=== PATIENT | male | born 1965 | race Caucasian/White ===

== ENCOUNTER 2021-08-31 11:25 | Inpatient (IN) | payer BC ==
[~2021-08-31] VITALS: Ht 172.7 cm; Wt 112.5 kg
--- NOTE | 2021-08-31 11:31 | NUR ---
TO ER BED 11, C/O DIZZINESS [id number] WORSE THIS MORNING AND LT EAR DISCOMFORT, CONNECTED TO MONITOR, DR RODRIGUEZ AT BEDSIDE
[2021-08-31] MEDS ORDERED: MECLIZINE HCL 25 MG TABLET ONE (11:58)
[2021-08-31] MEDS ORDERED: IV NS 0.9% 1,000 ML BAG IV ONE (12:00)
[2021-08-31] MEDS ORDERED: MECLIZINE HCL 12.5 MG TABLET PO ONE (12:00)
[2021-08-31 12:10] LABS: BASOPHILS % (AUTO) 0.3 % (0.0-2.0); EOSINOPHILS % (AUTO) 0.1 % (0.0-6.0); HEMATOCRIT 47 % (39-51); HEMOGLOBIN 15.6 g/dL (13.5-17.5); LYMPHOCYTES # (AUTO) 0.9 K/uL (0.8-4.8); LYMPHOCYTES % (AUTO) 9.5 % (20.0-44.0); MEAN CORPUSCULAR HGB CONC 34 g/dl (31.0-36.0); MEAN CORPUSCULAR VOLUME 96 fL (80-96); MONOCYTES # (AUTO) 0.4 K/uL (0.1-1.30); NEUTROPHILS % (AUTO) 86.1 % (43.0-81.0); PLATELET COUNT (AUTO) 217 K/uL (150-450); RED BLOOD CELL COUNT(AUTO) 4.86 MIL/uL (4.5-6.0); WHITE BLOOD COUNT (AUTO) 9.3 K/uL (4.3-11.0)
[2021-08-31 12:20] LABS: CALCIUM, SERUM 8.9 mg/dL (8.5-10.1); CREATININE 1.1 mg/dL (0.6-1.3); POTASSIUM 3.7 mmol/L (3.5-5.1)
[2021-08-31] MEDS ORDERED: LORAZEPAM INJ 2 MG/ML VIAL IV ONE (13:00)
[2021-08-31] MEDS ORDERED: METOCLOPRAMIDE HCL 10 MG/2 ML VIAL IV ONE (13:00)
[2021-08-31] MEDS ORDERED: LORAZEPAM INJ 2 MG/ML VIAL ONE (13:04)
[2021-08-31] MEDS ORDERED: METOCLOPRAMIDE HCL 10 MG/2 ML VIAL ONE (13:04)
--- NOTE | 2021-08-31 13:12 | NUR ---
MOVE SHEET SUBMITTED AND CALLED FOR BED.
--- NOTE | 2021-08-31 13:14 | NUR ---
[facility] CALLED [employer] [employer] PAGED.
[2021-08-31] MEDS ORDERED: ALLO100T PO (13:30)
[2021-08-31] MEDS ORDERED: COLC0.6C3 PO (13:30)
--- NOTE | 2021-08-31 13:45 | NUR ---
TEXTED DR. BAIRD FOR MRI APPROVAL.
--- NOTE | 2021-08-31 13:54 | NUR ---
MRI APPROVED, SURGEON PARTNER NOTIFIED.
--- NOTE | 2021-08-31 14:48 | NUR ---
COVID SWAB DONE AND SENT TO THE LAB
[2021-08-31] MEDS ORDERED: Z GUARD REMEDY 2 OZ OINT TP PRN (15:00)
[2021-08-31] MEDS ORDERED: MAGNESIUM HYDROXIDE 30 ML UDC PO PRN (15:00)
[2021-08-31] MEDS ORDERED: DIVALPROEX SODIUM 125 MG CAP.SPRINK PO ONE (15:00)
[2021-08-31] MEDS ORDERED: Magnesium 1GM/D5W 100ML PREMIX 100 ML IV SCH (15:00)
[2021-08-31] MEDS ORDERED: ZOLPIDEM TARTRATE 5 MG TABLET PO PRN (15:00)
[2021-08-31] MEDS ORDERED: MAG HYDROX/AL HYDROX/SIMETH 30 ML UDC PO PRN (15:00)
[2021-08-31] MEDS ORDERED: ACETAMINOPHEN 325 MG TABLET PO PRN (15:00)
--- NOTE | 2021-08-31 15:32 | NUR ---
ROOM 304-2
[2021-08-31 16:00] VITALS: BP 182/110
--- NOTE | 2021-08-31 16:35 | NUR ---
REPORT GIVEN TO NURSE SAMANIEGO AND THE PATIENT IS TRANSFERED TO ROOM 304 IN STABLE CONDITION AND VIA ARRANGED TRANSPO.
--- NOTE | 2021-08-31 16:40 | NUR ---
RN NOTE PT IN ROOM IN STABLE CONDITION. ZOFRAN GIVEN IV FOR NAUSEA. SKIN INTACT. NO SOB OR RESPIRATORY DISTRESS. TELE MONITOR PLACED. WILL CONTINUE TO MONITOR.
--- NOTE | 2021-08-31 19:45 | NUR ---
SENIOR HR MANAGER OPENING NOTE PATIENT RESTING IN BED, ALERT/ORIENTED X 4, PT ABLE TO MAKE NEEDS KNOWN. PATIENT STABLE ON RA, NO S/S OF DISTRESS OR SOB NOTED, BREATHING EVEN AND UNLABORED. PATIENT ON EXTERNAL ENGINE HOSTLER READING SINUS RHYTHM, HR: 75. LEFT HAND #22G IV ACCESS INTACT AND FLUSHING WELL. PATIENT REPORTING VERTIGO AND NAUSEA AT THIS TIME. SAFETY MEASURES IN PLACE: CALL LIGHT WITHIN REACH, SIDE RAILS UP X 2, BED LOCKED IN LOW POSITION, BED ALARM ON. WILL CONTINUE TO MONITOR PATIENT
[2021-08-31 20:00] VITALS: BP 178/110
[2021-08-31] MEDS ORDERED: hydrALAZINE HCL 50 MG TABLET PO ONE (20:00)
--- NOTE | 2021-08-31 20:00 | NUR ---
MARINE CONSULTANT NOTE CONTACTED REGARDING PATIENT'S HIGH BP OF 178/110. NEW ORDER FOR HYDRALAZINE 50 MG PO ONCE. ORDER READ BACK AND CONFIRMED, ORDER CARRIED OUT. WILL CONTINUE TO MONITOR PATIENT
[2021-08-31] MEDS: ONDANSETRON HCL/PF 4 MG/2 ML VIAL IVP PRN (20:15)
[2021-09-01] VITALS (7 sets, daily range): BP systolic 146–182; BP diastolic 89–106
--- NOTE | 2021-09-01 | NUR ---
PERSONAL ASSISTANT NOTE CONTACTED , PATIENT STILL HAS HIGH BP OF 182/100. NEW ORDER FOR HYDRALAZINE 50 MG PO ONCE. ORDER READBACK AND CONFIRMED, ORDER CARRIED OUT. WILL CONTINUE TO MONITOR PATIENT
[2021-09-01] MEDS: IV NS 0.9% 1,000 ML IV PRN ×2 (00:04→17:41)
[2021-09-01] MEDS: ONDANSETRON HCL/PF 4 MG/2 ML VIAL IVP PRN (00:05)
[2021-09-01 06:35] LABS: BASOPHILS % (AUTO) 0.4 % (0.0-2.0); EOSINOPHILS % (AUTO) 0.9 % (0.0-6.0); HEMATOCRIT 41 % (39-51); HEMOGLOBIN 14.1 g/dL (13.5-17.5); LYMPHOCYTES # (AUTO) 2.3 K/uL (0.8-4.8); LYMPHOCYTES % (AUTO) 30.4 % (20.0-44.0); MEAN CORPUSCULAR HGB CONC 34 g/dl (31.0-36.0); MEAN CORPUSCULAR VOLUME 95 fL (80-96); MONOCYTES # (AUTO) 0.6 K/uL (0.1-1.30); MONOCYTES % (AUTO) 8.2 % (2.0-12.0); NEUTROPHILS # (AUTO) 4.6 K/uL (1.8-8.9); NEUTROPHILS % (AUTO) 60.1 % (43.0-81.0); PLATELET COUNT (AUTO) 212 K/uL (150-450); RED BLOOD CELL COUNT(AUTO) 4.35 MIL/uL (4.5-6.0); WHITE BLOOD COUNT (AUTO) 7.7 K/uL (4.3-11.0)
--- NOTE | 2021-09-01 06:46 | NUR ---
PROFESSOR OF NURSING CLOSING NOTES PATIENT SLEEPING IN BED, APPEARS COMFORTABLE AND NOT IN DISTRESS. PATIENT'S BP DECREASED, LATEST BP 155/95. LEFT HAND IV ACCESS RUNNING NS @ 75 ML/HR. EXTERNAL HOURLY TEAM MEMBERS READING SINUS RHYTHM, HR: 66. CONSENT FORM AND QUESTIONNAIRE FOR BRAIN MRI WITHOUT CONTRAST SIGNED BY PATIENT AND CHARTED. SAFETY MEASURES IN PLACE: CALL LIGHT WITHIN REACH, SIDE RAILS UP X 2, BED LOCKED IN LOW POSITION, BED ALARM ON. WILL ENDORSE TO DAY SHIFT NURSE FOR CONTINUITY OF CARE
[2021-09-01 06:54] LABS: CALCIUM, SERUM 8.5 mg/dL (8.5-10.1); CREATININE 0.9 mg/dL (0.6-1.3); PHOSPHORUS 3.6 mg/dL (2.5-4.9); POTASSIUM 3.5 mmol/L (3.5-5.1)
--- NOTE | 2021-09-01 07:35 | NUR ---
TELE/RN OPENING NOTES RECEIVED PATIENT AWAKE ALERT AND ORIENTED X 4. PATIENT IS ON ROOM AIR. PATIENT IN NO APPARENT RESPIRATORY DISTRESS NOTED. NO COMPLAINED OF PAIN AT THIS TIME. TELE MONITOR READING SINUS RHYTHM 75 BPM. WILL CONTINUE TO MONITOR.
[2021-09-01] MEDS: ALLOPURINOL 100 MG TABLET PO SCH (08:37)
[2021-09-01] MEDS: COLCHICINE 0.6 MG TABLET PO SCH (08:37)
[2021-09-01] MEDS: VERAPAMIL HCL 80 MG TABLET PO SCH ×2 (08:38→17:29)
--- NOTE | 2021-09-01 09:00 | NUR ---
RN NOTES PATIENT IS OUT IN THE UNIT HAND PROFILER ELECTRONIC COMPONENTS ASSEMBLER FOR MRI.
--- NOTE | 2021-09-01 09:50 | NUR ---
RN NOTES PATIENT CAME BACK, PATIENT IS ALERT AND ORIENTED X4. PATIENT IS STABLE. WILL CONTINUE TO MONITOR.
[2021-09-01] MEDS ORDERED: GADOTERATE MEGLUMINE 10 MMOL/20 ML VIAL IV ONE (10:01)
[2021-09-01] MEDS ORDERED: predniSONE 50 MG TABLET PO SCH (13:00)
[2021-09-01] MEDS: predniSONE 20 MG TABLET PO SCH (13:50)
[2021-09-01] MEDS ORDERED: predniSONE 10 MG TABLET PO SCH (14:00)
--- NOTE | 2021-09-01 18:37 | NUR ---
MS/RN CLOSING NOTES PATIENT IS AWAKE ALERT AND ORIENTED X4. PATIENT IS ON ROOM AIR. PATIENT IN NO APPARENT RESPIRATORY DISTRESS NOTED. NO COMPLAINED OF PAIN NOTED AT THIS TIME. IV ACCESS AT LEFT HAND #22G WITH IV FLUID OF NS 1L AT 75ML/HOUR ON AND INFUSING WELL. SEEN AND EXAMINED BY MD WITH ORDERS MADE AND CARRIED OUT. ALL DUE MEDICATIONS WAS GIVEN. SAFETY PRECAUTIONS WAS IN PLACED. BED IN LOWEST POSITION AND LOCKED. SIDERAILS UP X2. CALL LIGHT WITHIN REACH. WILL ENDORSED TO VP RHEUMATOLOGY FOR O[place]A.
--- NOTE | 2021-09-01 19:48 | NUR ---
Patient is awake, A&Ox4. Patient reports that since he has been here the vertigo has been gradually improving and the prednisone he has been started on helped significantly. Denies dizziness or lightheadedness at this time. Fall risk safety measures in place. Bed alarm on. Will continue to monitor patient.
[2021-09-01] MEDS ORDERED: hydrALAZINE HCL 50 MG TABLET PO ONE ×2 (20:30)
--- NOTE | 2021-09-01 20:32 | NUR ---
Patient's BP elevated 177/107, notified director telecommunications DNP. New order for hydralazine 50mg PO x1 now. ORder noted and carried out. Will reassess BP.
--- NOTE | 2021-09-01 23:20 | NUR ---
BP down to 146/89
[2021-09-02] MEDS: IV NS 0.9% 1,000 ML IV PRN (06:58)
--- NOTE | 2021-09-02 07:17 | NUR ---
Patient has been A&Ox4. No overnight events. denies dizziness, lightheaded, nausea. Able to walk more with SBA, no issues. Tolerating IVF well.
--- NOTE | 2021-09-02 07:32 | NUR ---
MS/RN OPENING NOTES RECEIVED PATIENT AWAKE ALERT AND ORIENTED X 4. PATIENT IS ON ROOM AIR. PATIENT IN NO APPARENT RESPIRATORY DISTRESS NOTED. NO COMPLAINED OF PAIN NOTED AT THIS TIME. WILL CONTINUE TO MONITOR.
[2021-09-02] MEDS ORDERED: PRED50TA PO (07:50)
[2021-09-02] MEDS ORDERED: VERA80TA7 PO (07:50)
[2021-09-02 08:00] VITALS: BP 164/100
[2021-09-02] MEDS: COLCHICINE 0.6 MG TABLET PO SCH (08:22)
[2021-09-02] MEDS: predniSONE 20 MG TABLET PO SCH (08:22)
[2021-09-02] MEDS: ALLOPURINOL 100 MG TABLET PO SCH (08:22)
[2021-09-02 08:29] VITALS: BP 164/100
[2021-09-02] MEDS: VERAPAMIL HCL 80 MG TABLET PO SCH (08:29)
[2021-09-02] MEDS ORDERED: INFLUENZA VACCINE 2021-22 0.5 ML DISP.SYRIN IM ONE (10:00)
--- NOTE | 2021-09-02 10:20 | NUR ---
RN NOTES PATIENT IS ALERT AND ORIENTED X4. PATIENT IS ON ROOM AIR. PATIENT IN NO APPARENT RESPIRATORY DISTRESS NOTED. NO COMPLAINED OF PAIN OR DIZZINESS NOTED. SEEN AND EXAMINED BY MD WITH ORDERS MADE AND CARRIED OUT. ALL DUE MEDICATIONS WAS GIVEN. DISCHARGED INSTRUCTIONS WAS GIVEN AND PATIENT VERBALIZED UNDERSTANDING. PATIENT LEFT THE HOSPITAL IN MEDICALLY STABLE CONDITION, PATIENT IS A SELF CARE. PATIENT REQUEST FOR FLU VACCINE, ADMINISTERED INFLUENZA VACCINE 0.5 ML IM. PATIENT REFUSED TO CHECK VITAL SIGN EXPLAINED THE RISK AND BENEFITS.
== END 2021-09-02 10:15 | disposition home or self-care (01) | DRG 103 ==
LOC: ER 11:35 → TELE 15:47 → MED 09-01 09:14
PROVIDERS: ADMIT Nurse Practitioner Acute Care; ATTEND Family Medicine
DX: G43.109 Migraine with aura, not intractable, without status migrainosus (principal); E66.9 Obesity, unspecified; I10 Essential (primary) hypertension; M10.9 Gout, unspecified; G62.9 Polyneuropathy, unspecified; H81.10 Benign paroxysmal vertigo, unspecified ear; H83.09 Labyrinthitis, unspecified ear; Z68.37 Body mass index [BMI] 37.0-37.9, adult; H81.20 Vestibular neuronitis, unspecified ear; Z20.822 Contact with and (suspected) exposure to COVID-19
CPT/HCPCS: 36415; 70450-TC; 70553-TC; 80048-TC; 80061-TC; 83735-TC; 84100-TC; 84484-TC; 85025-TC; 87081-TC; 97116-TC; 97530-TC; A9575; C9803; G0378; J2060; J2405; J2765; J7030; J8597; Q2036